=== PATIENT | female | born 1945 | race Caucasian/White ===

== ENCOUNTER 2018-03-21 11:00 | Inpatient (IN) | payer MEDICARE ==
[~2018-03-21] VITALS: Ht 151.1 cm; Wt 61.0 kg
[2018-03-21 09:42] VITALS: BP 119/74
[~2018-03-21 11:00] MED LIST: LEVO125T11 PO; LISI-613 PO; MULT-1203 PO; PRO AIR HFA IH
[2018-03-27] VITALS (19 sets, daily range): BP systolic 92–133; BP diastolic 62–93
[2018-03-27] MEDS: CEFAZOLIN SODIUM 1 GM VIAL IVP SCH ×2 (05:00→08:00)
[2018-03-27] MEDS ORDERED: LACTATED RINGERS 1000ML 1,000 ML IV ONE (05:58)
[2018-03-27] MEDS ORDERED: BUPIVACAINE/PF 0.25% 30ML VIAL IJ ONE (06:52)
[2018-03-27] MEDS ORDERED: DURAMORPH PF1 MG/ML 10ML AMP IV ONE (06:52)
[2018-03-27] MEDS ORDERED: EPINEPHRINE 1 MG/ML AMPULE ONE (06:52)
[2018-03-27] MEDS ORDERED: THROMBIN-JMI 20000 UNIT KIT TP ONE (06:53)
[2018-03-27] MEDS ORDERED: BACITRACIN 50,000 UNIT VIAL ONE (06:53)
[2018-03-27] MEDS ORDERED: ONDANSETRON HCL 4 MG/2 ML VIAL ONE (07:23)
[2018-03-27] MEDS ORDERED: GLYCOPYRROLATE 0.2 MG/ML 5 ML VIAL ONE (07:23)
[2018-03-27] MEDS ORDERED: LIDOCAINE PF 2% 5ML ABBOJECT ONE (07:23)
[2018-03-27] MEDS ORDERED: NEOSTIGMINE 5MG/5ML SYR IV ONE (07:23)
[2018-03-27] MEDS ORDERED: DEXAMETHASONE SOD PHOSPHATE 10MG/ML 1ML VIAL ONE (07:23)
[2018-03-27] MEDS ORDERED: MIDAZOLAM HCL 1 MG/ML 2ML VIAL ONE (07:24)
[2018-03-27] MEDS ORDERED: FENTANYL CITRATE PF 50 MCG/1 ML 2ML VIAL ONE ×2 (07:24→12:21)
[2018-03-27] MEDS ORDERED: PROPOFOL 10 MG/ML 20ML VIAL IV ONE (07:24)
[2018-03-27] MEDS ORDERED: ROCURONIUM BROMIDE 10MG/1ML 5ML VL ONE (07:29)
[2018-03-27] MEDS ORDERED: SUB TO ALBUTEROL 2.5MG/3ML NEBULES PER P&T IH ONE (11:27)
[2018-03-27] MEDS ORDERED: CEFAZOLIN SODIUM 1 GM VIAL IVP SCH (12:00)
[2018-03-27] MEDS ORDERED: CEFAZOLIN 2GM / 50 ML 50 ML IV SCH (12:00)
[2018-03-27] MEDS ORDERED: MORPHINE SULFATE 2 MG/ML 1ML SYG IVP PRN (12:00)
[2018-03-27] MEDS ORDERED: SODIUM CHLORIDE 0.9% 10 ML VIAL IVP PRN (12:00)
[2018-03-27] MEDS ORDERED: PROMETHAZINE HCL 25 MG/ML 1ML AMPULE IM PRN (12:00)
[2018-03-27] MEDS: LACTATED RINGERS 1000ML 1,000 ML IV SCH ×2 (13:11→23:41)
[2018-03-27] MEDS: DEXAMETHASONE SOD PHOSPHATE 4 MG/ML 1ML VIAL IVP SCH ×3 (13:12→23:41)
[2018-03-27] MEDS ORDERED: MORPHINE SULFATE 4 MG/1ML SYG ONE (14:33)
[2018-03-27] MEDS: HYDROCODONE/ACETAMINOPHEN 5/325 MG TAB PO PRN ×2 (15:56→21:36)
[2018-03-27] MEDS: MORPHINE SULFATE 4 MG/1ML SYG IVP PRN ×2 (19:36→23:46)
[2018-03-28 00:06] VITALS: BP 96/57
[2018-03-28 04:06] VITALS: BP 111/64
[2018-03-28] MEDS: HYDROCODONE/ACETAMINOPHEN 5/325 MG TAB PO PRN ×2 (04:13→08:34)
[2018-03-28] MEDS: DEXAMETHASONE SOD PHOSPHATE 4 MG/ML 1ML VIAL IVP SCH (05:55)
[2018-03-28 07:58] VITALS: BP 91/64
[2018-03-28] MEDS ORDERED: LEVOTHYROXINE 125 MCG TABLET PO SCH (09:00)
[2018-03-28] MEDS ORDERED: LISINOPRIL 20 MG TABLET PO SCH (09:00)
[2018-03-28] MEDS ORDERED: MULTIVITAMIN TABLET PO SCH (09:00)
== END 2018-03-28 11:58 | disposition home or self-care (01) | DRG 460 ==
LOC: EDSTATUS 11:00 → DAHIP 03-27 05:47 → 4BH 03-27 12:52
PROVIDERS: ADMIT Neurological Surgery; ATTEND Neurological Surgery
PROC: 4A11X4G Monitoring of Peripheral Nervous Electrical Activity, Intraoperative, External Approach (ICD-10-PCS; 2018-03-27)
PROC: 0SG0071 Fusion of Lumbar Vertebral Joint with Autologous Tissue Substitute, Posterior Approach, Posterior Column, Open Approach (ICD-10-PCS; principal; 2018-03-27 07:30)
PROC: 01NB0ZZ Release Lumbar Nerve, Open Approach (ICD-10-PCS; 2018-03-27 07:30)
PROC: 01NR0ZZ Release Sacral Nerve, Open Approach (ICD-10-PCS; 2018-03-27 07:30)
DX: M48.061 Spinal stenosis, lumbar region without neurogenic claudication (principal); M43.16 Spondylolisthesis, lumbar region; M54.16 Radiculopathy, lumbar region; Z88.8 Allergy status to other drugs, medicaments and biological substances
CPT/HCPCS: 76000; A4218; A4344; J0171; J0690; J1100; J2001; J2250; J2270; J2274; J2405; J2704; J2710; J3010; J3490; J7120

== ENCOUNTER → 2018-04-21 | Outpatient (CLI) | payer MEDICARE | END | disposition home or self-care (01) | LOC: OIH 09:17 | PROVIDERS: ATTEND Neurological Surgery | DX: S33.140A Subluxation of L4/L5 lumbar vertebra, initial encounter (principal); M43.26 Fusion of spine, lumbar region; X58.XXXA Exposure to other specified factors, initial encounter; Y93.89 Activity, other specified; Y92.89 Other specified places as the place of occurrence of the external cause; Y99.8 Other external cause status | CPT/HCPCS: 72100 ==

== ENCOUNTER → 2018-11-10 | Outpatient (CLI) | payer MEDICARE ==
[2018-11-10 14:50] LABS: CREATININE 0.6 mg/dL (0.5-1.5)
== END | disposition home or self-care (01) ==
LOC: LAB 14:00
PROVIDERS: ATTEND Neurological Surgery
DX: M54.16 Radiculopathy, lumbar region (principal)
CPT/HCPCS: 36415; 82565; 84520

== ENCOUNTER → 2018-11-20 | Outpatient (CLI) | payer MEDICARE ==
[~2018-11-20] MED LIST changes: +GADODIAMIDE 10 MMOL/20 ML ML IV ONE
== END | disposition home or self-care (01) ==
LOC: RAH 11:31
PROVIDERS: ATTEND Neurological Surgery
DX: M47.26 Other spondylosis with radiculopathy, lumbar region (principal); M43.26 Fusion of spine, lumbar region
CPT/HCPCS: 72100; 72158; A9579

== ENCOUNTER → 2019-04-14 | Outpatient (CLI) | payer MEDICARE ==
[~2019-04-14] MED LIST changes: -GADODIAMIDE 10 MMOL/20 ML ML IV ONE
== END | disposition home or self-care (01) ==
LOC: RAH 11:55
PROVIDERS: ATTEND Physical Medicine & Rehabilitation
DX: M47.26 Other spondylosis with radiculopathy, lumbar region (principal)
CPT/HCPCS: 72120

== ENCOUNTER → 2019-05-29 | Outpatient (CLI) | payer MEDICARE | END | disposition home or self-care (01) | LOC: RAH 10:48 | PROVIDERS: ATTEND Physical Medicine & Rehabilitation | DX: M17.12 Unilateral primary osteoarthritis, left knee (principal); M51.16 Intervertebral disc disorders with radiculopathy, lumbar region; M47.26 Other spondylosis with radiculopathy, lumbar region; M43.16 Spondylolisthesis, lumbar region; M48.061 Spinal stenosis, lumbar region without neurogenic claudication; M25.462 Effusion, left knee | CPT/HCPCS: 72148; 73562 ==

== ENCOUNTER → 2019-06-12 | Outpatient (CLI) | payer MEDICARE | END | disposition home or self-care (01) | LOC: RAH 14:53 | PROVIDERS: ATTEND Physical Medicine & Rehabilitation | DX: M47.898 Other spondylosis, sacral and sacrococcygeal region (principal); M99.04 Segmental and somatic dysfunction of sacral region; L05.91 Pilonidal cyst without abscess | CPT/HCPCS: 72195 ==

== ENCOUNTER → 2024-01-02 | Outpatient (CLI) | payer MEDICARE ==
[~2024-01-02] MED LIST changes: -LISI-613 PO; +LISI20TA24 PO
== END | disposition home or self-care (01) ==
LOC: RAH 10:51
PROVIDERS: ATTEND Student in an Organized Health Care Education/Training Program
DX: M19.011 Primary osteoarthritis, right shoulder (principal); M25.511 Pain in right shoulder
CPT/HCPCS: 73200

== ENCOUNTER → 2024-01-27 | Outpatient (CLI) | payer MEDICARE | END | disposition home or self-care (01) | LOC: RAH 09:06 | PROVIDERS: ATTEND Student in an Organized Health Care Education/Training Program | DX: M12.811 Other specific arthropathies, not elsewhere classified, right shoulder (principal) | CPT/HCPCS: 73030 ==

== ENCOUNTER → 2024-07-02 | Outpatient (CLI) | payer MEDICARE | END | disposition home or self-care (01) | LOC: RAH 13:47 | PROVIDERS: ATTEND Internal Medicine Pulmonary Disease | DX: R91.8 Other nonspecific abnormal finding of lung field (principal); J84.9 Interstitial pulmonary disease, unspecified; J84.10 Pulmonary fibrosis, unspecified; K44.9 Diaphragmatic hernia without obstruction or gangrene; M47.815 Spondylosis without myelopathy or radiculopathy, thoracolumbar region | CPT/HCPCS: 71250 ==

== ENCOUNTER → 2025-07-16 | Outpatient (CLI) | payer MEDICARE ==
[~2025-07-16] MED LIST changes: +ACET-2079 PO; +ACET-66 PO; +AMLO2.5T4 PO; -LEVO125T11 PO; +LEVO75CA6 PO; -LISI20TA24 PO; -MULT-1203 PO; -PRO AIR HFA IH; +ROSU10TA72 PO
--- NOTE | 2025-07-16 20:31 | HMCIMG ---
EXAM: MR Lumbar Spine Without Intravenous Contrast. CLINICAL HISTORY: Secondary scoliosis. Site unspecified. TECHNIQUE: Magnetic resonance images of the lumbar spine in multiple planes. CONTRAST: None. COMPARISON: MRI dated 05/29/19. FINDINGS: For this examination, spinal levels were labeled assuming five non-rib bearing, lumbar-type vertebrae with the inferior labeled L5. Posterior spinal fixation hardware at L4-L5 levels. L5 laminectomy noted. No acute fracture. Moderate levoscoliosis. Mild degenerative anterolisthesis of L4 over L5. Exaggerated lumbar lordosis. Multilevel spondylosis is evident by marginal osteophytes and facet joint arthropathy. Multilevel disc desiccation and degenerative disc height reduction noted, more pronounced at the L4-L5 level. Mild facet joint synovitis at the L1-L2 level. Normal vertebral body heights. Modic type I changes in the contiguous endplates at the T12-L1 and L1-L2 levels. Modic type II changes in the contiguous endplates at the T8-T9, T9-T10, T11-T12, and L2-L3 levels. Conus medullaris terminates at the T12 level. No abnormal epidural masses. Simple cortical cyst noted in the right kidney. Individual spinal levels are described as follows: T11-T12: 5 mm disc osteophyte complex bulge causing mild indentation on the anterior thecal sac. No neural foraminal or lateral recess stenosis. T12-L1: No disc bulge or herniation. No neural foraminal, lateral recess or spinal canal stenosis. L1-L2: 4 mm disc osteophyte complex bulge causing mild indentation on the anterior thecal sac. No neural foraminal or lateral recess stenosis. L2-L3: 4 mm disc osteophyte complex bulge causing mild indentation on the anterior thecal sac. No neural foraminal or lateral recess stenosis. L3-L4: 4 mm disc osteophyte complex bulge causing mild indentation on the anterior thecal sac. No neural foraminal or lateral recess stenosis. L4-L5: 6 mm anterolisthesis of L4 over L5 with uncovering of the posterior disc causing mild indentation on the anterior thecal sac. No neural foraminal or lateral recess stenosis. L5-S1: No disc bulge or herniation. No neural foraminal, lateral recess or spinal canal stenosis. IMPRESSION: Posterior spinal fixation hardware at L4-L5 levels. L5 laminectomy. Stable. Moderate levoscoliosis. Stable. Mild degenerative anterolisthesis of L4 over L5. Exaggerated lumbar lordosis. Stable. Moderate multilevel spondylosis and degenerative disc changes. Stable. Mild facet joint synovitis at the L1-L2 level. New finding. Modic type I changes in the contiguous endplates at the T12-L1 and L1-L2 levels. New finding. Modic type II changes in the contiguous endplates at the T8-T9, T9-T10, T11-T12, and L2-L3 levels. Stable. Mild indentation on the anterior thecal sac at the T11-T12, L1-L2, L2-L3, L3-L4, and L4-L5 levels. Stable. /[place]
--- NOTE | 2025-07-18 11:41 | HMCIMG ---
EXAM: CT Lumbar Spine Without IV Contrast. CLINICAL HISTORY: Pain. TECHNIQUE: Spiral axial CT images through the lumbar spine were acquired, reconstructed in axial and sagittal projections, and imaged using soft tissue and bone algorithms. Reformatted/MPR images were performed. A CT scan is done according to ALARA (As Low as Reasonably Achievable). CONTRAST: None. COMPARISON: Same-day MRI lumbar spine. FINDINGS: No acute fracture. Normal lordotic curvature. Normal vertebral body and disc heights. Normal bone density. The surrounding soft tissues are unremarkable. Individual spinal levels are described as follows: T11-T12 level. Severe degenerative changes at the T11-T12 level with subchondral sclerosis and a degenerative subchondral cyst in the T11 vertebra. T12-L1: No disc bulge or herniation. No neural foraminal, lateral recess, or spinal canal stenosis. L1-L2: Mild degenerative reduction in disc space and minimal retrolisthesis of L1 over L2. No significant disc bulges or neural foraminal narrowing or nerve impingement. L2-L3: Normal disc height. Circumferential 3 mm disc bulge and mild bilateral facet arthropathy. No neural foraminal, lateral recess, or spinal canal stenosis. L3-L4: Minimal retrolisthesis of L3 over L4 (2 mm). Broad-based circumferential 3 mm disc bulge with bilateral hypertrophic facet arthropathy. Moderate narrowing of the left neural foramina and mild narrowing of the right neural foramina. L4-L5: Post-laminectomy status. Grade 1 anterolisthesis of L5 over S1. Posterior orthopedic fixation. Severe bilateral facet arthropathy at the L4-L5 level. Moderate narrowing of the left neural foramina and mild narrowing of the right neural foramina. L5-S1: Post-laminectomy status with posterior orthopedic fixation. Mild degenerative facet arthropathy, moderate narrowing of the bilateral neural foramina. No spinal canal stenosis. Atherosclerotic calcification of the abdominal aorta and infrarenal aorta. Multiple nonobstructive bilateral renal calculi ranging in size from 4 mm. A 2.6 x 1.5 cm posterior cortical cyst from the right kidney interpolar region. Scattered diverticulosis of the sigmoid colon without evidence of diverticulitis. Post-hysterectomy status.Mild hiatus hernia. IMPRESSIONS: Normal vertebral body height. No evidence of acute fracture. Post laminectomy status at the L4-L5 and L5-S1 levels with posterior orthopedic fixation at the L3-L4 and L4-L5 levels. Multilevel degenerative facet arthropathy and degenerative changes in the lumbar spine as described above. Atherosclerotic calcification of the abdominal aorta and infrarenal aorta. Multiple nonobstructive bilateral renal calculi ranging in size from 4 mm. A 2.6 x 1.5 cm posterior cortical cyst from the right kidney interpolar region. Scattered diverticulosis of the sigmoid colon without evidence of diverticulitis. Post-hysterectomy status. Mild hiatus hernia. /[place]
== END | disposition home or self-care (01) ==
LOC: RAH 13:18
PROVIDERS: ATTEND Physical Medicine & Rehabilitation Pain Medicine
DX: T84.216A Breakdown (mechanical) of internal fixation device of vertebrae, initial encounter (principal); G89.4 Chronic pain syndrome; M47.816 Spondylosis without myelopathy or radiculopathy, lumbar region; M43.16 Spondylolisthesis, lumbar region; M40.46 Postural lordosis, lumbar region; M65.88 Other synovitis and tenosynovitis, other site; N28.1 Cyst of kidney, acquired; M25.78 Osteophyte, vertebrae; I70.0 Atherosclerosis of aorta; K44.9 Diaphragmatic hernia without obstruction or gangrene; N20.0 Calculus of kidney; K57.30 Diverticulosis of large intestine without perforation or abscess without bleeding; Z98.1 Arthrodesis status; Z90.710 Acquired absence of both cervix and uterus; X58.XXXA Exposure to other specified factors, initial encounter; Y93.89 Activity, other specified; Y92.89 Other specified places as the place of occurrence of the external cause; Y99.8 Other external cause status
CPT/HCPCS: 72131; 72148